=== PATIENT | male | born 1985 | race Caucasian/White ===

== ENCOUNTER 2019-06-17 08:35 | Emergency (ER) | payer BC ==
[2019-06-17] MEDS ORDERED: Ibuprofen 600 MG TAB ONE (09:25)
--- NOTE | 2019-06-17 10:32 | RAD ---
3 VIEW RIGHT ANKLE: Date: 06/17/19 COMPARISON: 01/17/07. CLINICAL INDICATION: Injury with pain. 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 Mild anterior soft tissue prominence is seen. IMPRESSION: 1. 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 2. No acute osseous abnormality. 3. Mild anterior soft tissue swelling. Correlate clinically. POS: CET
== END 2019-06-17 09:50 | disposition home or self-care (01) ==
LOC: MADERS 08:35
DX: S93.401A Sprain of unspecified ligament of right ankle, initial encounter (principal); F17.210 Nicotine dependence, cigarettes, uncomplicated; Z71.6 Tobacco abuse counseling; W22.8XXA Striking against or struck by other objects, initial encounter
CPT/HCPCS: 99406

== ENCOUNTER 2020-05-02 11:40 | Emergency (ER) | payer BC, OTHER, SELFPAY ==
[2020-05-02] MEDS ORDERED: Sodium Chloride 0.9% 1,000 ML ONE (12:22)
--- NOTE | 2020-05-02 12:22 | RAD ---
EXAM: Chest PA and lateral: HISTORY: Nausea. Vomiting. Tachycardia COMPARISON: 01/17/2007 FINDINGS: Heart: Normal cardiac silhouette Aorta: Unremarkable Pulmonary vessels: Normal Costophrenic angles: Costophrenic angles are clear. Lungs: No consolidation or masses. Pneumothorax: No pneumothorax Osseous structures: No osseous abnormalities IMPRESSION: No acute cardiopulmonary process.
[2020-05-02 12:26] LABS: #Basophils 0.1 thou/uL (0.0-0.2); #Lymphocytes 2.3 thou/uL (1.20-3.40); #Monocytes 0.9 thou/uL (0.11-0.59); %Basophils 0.6 % (0.0-1.0); %Eosinophils 0.5 % (0.0-10.0); %Lymphocytes 24.8 % (21.0-51.0); %Monocytes 9.6 % (0.0-10.0); %Neutrophils 64.6 % (42.0-75.0); Hemoglobin 16.7 g/dL (14.0-18.0); Mean Corpuscular HGB CONC 31.8 g/dL (32.0-36.0); Mean Corpuscular Volume 91.3 fL (78.0-98.0); Mean Platelet Volume 8.2 fL (7.4-10.4); Platelet Count 318 thou/uL (130-400); RBC Distribution Width 12.2 % (11.5-14.5); Red Blood Cell (RBC) Count 5.77 mill/uL (4.70-6.10); White Blood Cell (WBC) Count 9.3 thou/uL (4.8-10.8)
[2020-05-02 12:42] LABS: ALT (SGPT) 21 U/L (8-55); AST (SGOT) 26 U/L (5-34); Albumin 5.5 g/dL (3.5-5.0); Alkaline Phosphatase 91 U/L (40-110); Anion Gap 17 mmol/L (10-20); BUN (Urea Nitrogen) 31 mg/dL (8.9-20.6); Bilirubin, Total 1.5 mg/dL (0.2-1.2); Calc. Creatinine Clearance 0 mL/min (70-130); Calcium 9.7 mg/dL (7.8-10.44); Carbon Dioxide 24 mmol/L (22-29); Chloride 96 mmol/L (98-107); Estimated GFR-MDRD 51; Globulin 3.7 g/dL (2.4-3.5); Glucose 130 mg/dL (70-105); Lipase 7 U/L (8-78); Magnesium 2.3 mg/dL (1.6-2.6); Potassium 3.3 mmol/L (3.5-5.1); Protein, Total 9.2 g/dL (6.0-8.3); Sodium 134 mmol/L (136-145)
[2020-05-02] MEDS ORDERED: Pantoprazole 40 MG VIAL ONE (13:29)
[2020-05-02] MEDS ORDERED: Ondansetron PF 4 MG/2 ML Vial ONE (13:42)
[2020-05-03 15:27] LABS: SARS-CoV-2 MS2 Positive; SARS-CoV-2 N Gene Negative; SARS-CoV-2 S Gene Negative; SARS-CoV-2 orf1ab Negative
== END 2020-05-02 14:00 | disposition home or self-care (01) ==
LOC: MADERS 11:40
DX: K52.9 Noninfective gastroenteritis and colitis, unspecified (principal); F17.210 Nicotine dependence, cigarettes, uncomplicated
CPT/HCPCS: 36415; 71046; 80053; 83605; 83690; 83735; 84484; 85025; 87040; 87635; 94760; 96361; 96374; 96375; C9113; J2405; J7050; U0003

== ENCOUNTER 2021-07-08 11:28 | Emergency (ER) | payer SELFPAY ==
[~2021-07-08 11:28] MED LIST: Sodium Chloride 0.9% 1,000 ML BAG ONE
[2021-07-08] MEDS ORDERED: Ketamine 50 MG/ML (10ML VIAL) ONE (11:51)
[2021-07-08] MEDS ORDERED: Morphine 4 MG/ML VIAL ONE ×2 (12:41→12:56)
== END 2021-07-08 13:35 | disposition short-term general hospital (02) ==
LOC: MADERS 11:28
DX: S43.004A Unspecified dislocation of right shoulder joint, initial encounter (principal); F17.210 Nicotine dependence, cigarettes, uncomplicated; X58.XXXA Exposure to other specified factors, initial encounter
CPT/HCPCS: 96374; J2270; J7050